=== PATIENT | male | born 1940 | race Caucasian/White ===

== ENCOUNTER → 2019-06-22 | Outpatient (CLI) | payer MEDICARE ==
[~2019-06-22] MED LIST: AMIO400T5 PO; ASPI81TA45 PO; ATEN50TA41 PO; CLOP75TA52 PO; DOCU-131 PO; FURO-93 PO; HYDR-36 PO; HYDR25TA6 PO; LISI-167 PO; LOVA40TA2 PO; METO25TA35 PO/NG; OMEP40CA42 PO; POTA20TA14 PO; SIMV20TA PO
== END | disposition home or self-care (01) ==
LOC: CFH 10:21
PROVIDERS: ATTEND Internal Medicine Cardiovascular Disease
DX: I34.0 Nonrheumatic mitral (valve) insufficiency (principal); I25.10 Atherosclerotic heart disease of native coronary artery without angina pectoris; I11.9 Hypertensive heart disease without heart failure
CPT/HCPCS: 93306

== ENCOUNTER 2019-12-15 02:17 | Emergency (ER) | payer MEDICARE ==
[~2019-12-15] VITALS: Ht 170.2 cm; Wt 73.8 kg
[~2019-12-15 02:17] MED LIST changes: +HYDR-3246 PO; -HYDR-36 PO
--- NOTE | 2019-12-15 02:24 | NUR ---
PT AMBULATORY TO ROOM, STEADY GAIT. ERP TO BEDSIDE.
[2019-12-15] MEDS ORDERED: KETOROLAC 30 MG/1 ML IM ONE (02:30)
[2019-12-15] MEDS ORDERED: DIAZEPAM 5 MG TABLET PO ONE (02:30)
[2019-12-15] MEDS ORDERED: KETOROLAC 60 MG/2 ML ONE (02:32)
[2019-12-15] MEDS ORDERED: DIAZEPAM 5 MG TABLET ONE (02:33)
--- NOTE | 2019-12-15 02:41 | NUR ---
PT TO IMAGING. PT ABLE TO CHANGE SELF INTO GOWN. RESPIRATIONS EVEN AND UNLABORED, NO SIGNS OF ACUTE DISTRESS. PER PT PAIN IS RIGHT FLANK AND SHARP.
[2019-12-15 03:39] VITALS: BP 173/79
== END 2019-12-15 03:42 | disposition home or self-care (01) ==
LOC: ED 03:25
DX: S39.012A Strain of muscle, fascia and tendon of lower back, initial encounter (principal); K59.00 Constipation, unspecified; I10 Essential (primary) hypertension; K21.9 Gastro-esophageal reflux disease without esophagitis; E78.00 Pure hypercholesterolemia, unspecified; X58.XXXA Exposure to other specified factors, initial encounter; Y93.89 Activity, other specified; Y92.89 Other specified places as the place of occurrence of the external cause; Y99.8 Other external cause status
CPT/HCPCS: 74021; 96372; 99283; J1885

== ENCOUNTER 2019-12-22 14:12 | Emergency (ER) | payer MEDICARE ==
[~2019-12-22] VITALS: Ht 170.2 cm; Wt 75.0 kg
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
[2019-12-22 15:06] LABS: BASOPHILS # (AUTO) 0.02 x10^3/uL (0-0.1); BASOPHILS % (AUTO) 0 % (0-1); EOSINOPHILS # (AUTO) 0.06 x10^3/uL (0-0.4); EOSINOPHILS % (AUTO) 1 % (1-7); LYMPHOCYTES % (AUTO) 17 % (22-44); MD NO; MEAN CORPUSCULAR HEMOGLOBIN 31.2 pg (27.5-34.5); MEAN CORPUSCULAR HGB CONC 33.7 g/dL (33.2-36.2); MEAN CORPUSCULAR VOLUME 92.7 fL (81-97); MEAN PLATELET VOLUME 8.8 fL (7.4-10.4); MONOCYTES # (AUTO) 0.71 x10^3/uL (0.2-0.8); MONOCYTES % (AUTO) 8 % (2-9); NEUTROPHILS % (AUTO) 74 % (42-75); PLATELET COUNT 169 x10^3/uL (130-400); RED BLOOD COUNT 5.03 x10^6/uL (4.38-5.82); RED CELL DISTRIBUTION WIDTH 14.8 % (9.4-14.8)
[2019-12-22 15:17] LABS: ALBUMIN 3.8 g/dL (3.4-5.0); ANION GAP 5 mmol/L (5-15); CALCIUM 9.1 mg/dL (8.5-10.1); CHLORIDE 107 mmol/L (98-107); CREATININE 1.42 mg/dL (0.7-1.3)
[2019-12-22 16:13] VITALS: BP 187/92
--- NOTE | 2019-12-22 16:24 | NUR ---
IS EDUCATION PROVIDED.
== END 2019-12-22 16:25 | disposition home or self-care (01) ==
LOC: ED 15:31
DX: S22.32XA Fracture of one rib, left side, initial encounter for closed fracture (principal); I10 Essential (primary) hypertension; K21.9 Gastro-esophageal reflux disease without esophagitis; M19.90 Unspecified osteoarthritis, unspecified site; V49.59XA Passenger injured in collision with other motor vehicles in traffic accident, initial encounter; Y93.89 Activity, other specified; Y92.89 Other specified places as the place of occurrence of the external cause; Y99.8 Other external cause status
CPT/HCPCS: 36415; 71250; 74176; 80048; 82040; 85025; 99285

== ENCOUNTER 2019-12-29 09:37 | Emergency (ER) | payer MEDICARE ==
[~2019-12-29] VITALS: Ht 170.2 cm; Wt 71.7 kg
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
--- NOTE | 2019-12-29 11:16 | NUR ---
EDMD AT BEDSIDE EVALUATING AT THIS TIME.
[2019-12-29 11:56] LABS: BASOPHILS # (AUTO) 0.03 x10^3/uL (0-0.1); BASOPHILS % (AUTO) 0 % (0-1); EOSINOPHILS # (AUTO) 0.02 x10^3/uL (0-0.4); EOSINOPHILS % (AUTO) 0 % (1-7); LYMPHOCYTES # (AUTO) 1.41 x10^3/uL (1-3.4); LYMPHOCYTES % (AUTO) 14 % (22-44); MD NO; MEAN CORPUSCULAR HEMOGLOBIN 31.3 pg (27.5-34.5); MEAN CORPUSCULAR HGB CONC 33.6 g/dL (33.2-36.2); MEAN CORPUSCULAR VOLUME 93.1 fL (81-97); MEAN PLATELET VOLUME 8.7 fL (7.4-10.4); MONOCYTES # (AUTO) 0.99 x10^3/uL (0.2-0.8); MONOCYTES % (AUTO) 10 % (2-9); NEUTROPHILS # (AUTO) 7.39 x10^3/uL (1.8-6.8); NEUTROPHILS % (AUTO) 75 % (42-75); PLATELET COUNT 218 x10^3/uL (130-400); RED BLOOD COUNT 4.61 x10^6/uL (4.38-5.82)
[2019-12-29] MEDS ORDERED: DOCUSATE 50 MG/5 ML ORAL SOL OTIC STA (11:56)
--- NOTE | 2019-12-29 11:57 | NUR ---
TASK RN: PT RESTING ON GURNEY IN NAD, FALL PRECAUTIONS IN PLACE, CALL LIGTH WITHIN REACH.
[2019-12-29] MEDS ORDERED: OXYcodone/APAP 5/325MG TABLET PO ONE (12:00)
[2019-12-29] MEDS ORDERED: OXYcodone/APAP 5/325MG TABLET ONE (12:01)
[2019-12-29] MEDS ORDERED: DOCUSATE 50 MG/5 ML, 10ML UDC ONE (12:01)
[2019-12-29 12:06] LABS: ALBUMIN 3.1 g/dL (3.4-5.0); ANION GAP 6 mmol/L (5-15); CALCIUM 9.3 mg/dL (8.5-10.1); CHLORIDE 108 mmol/L (98-107)
[2019-12-29 12:08] LABS: CREATININE 1.01 mg/dL (0.7-1.3)
--- NOTE | 2019-12-29 12:45 | NUR ---
PT IN CT AT THIS TIME.
--- NOTE | 2019-12-29 12:50 | NUR ---
PT BACK TO ROOM FROM CT AT THIS TIME.
[2019-12-29] MEDS ORDERED: OMNIPAQUE 350 MG/ML, 100ML BOTTLE ONE (12:51)
--- NOTE | 2019-12-29 13:37 | NUR ---
pt amb to br with steady gait.
[2019-12-29 13:53] VITALS: BP 185/91
--- NOTE | 2019-12-29 14:27 | NUR ---
this tech did bilateral earrigation
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
--- NOTE | 2019-12-29 14:59 | NUR ---
Patient given discharge instructions and they have confirmed that they understand the instructions. Patient ambulatory with steady gait.
== END 2019-12-29 14:50 | disposition home or self-care (01) ==
LOC: ED 10:22
DX: H61.23 Impacted cerumen, bilateral (principal); M54.2 Cervicalgia; I45.10 Unspecified right bundle-branch block; I10 Essential (primary) hypertension
CPT/HCPCS: 36415; 70491; 80048; 82040; 85025; 93005; 99285; Q9967

== ENCOUNTER 2020-07-19 11:14 | Outpatient (CLI) | payer MEDICARE ==
[~2020-07-19 11:14] MED LIST changes: -HYDR-3246 PO; +HYDR-3248 PO
== END 2020-07-19 23:59 | disposition home or self-care (01) ==
LOC: CVU 11:14
PROVIDERS: ATTEND Internal Medicine Cardiovascular Disease
DX: I65.23 Occlusion and stenosis of bilateral carotid arteries (principal); I10 Essential (primary) hypertension; E78.5 Hyperlipidemia, unspecified; I67.9 Cerebrovascular disease, unspecified; Z95.1 Presence of aortocoronary bypass graft
CPT/HCPCS: 93880